=== PATIENT | female | born 2000 | race African-American/Black ===

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

== ENCOUNTER 2019-05-24 18:53 | Inpatient (IN) | payer MEDICARE, MEDICAID ==
[~2019-05-24] VITALS: Ht 167.6 cm; Wt 93.4 kg
[2019-05-24] MEDS ORDERED: IPRATROPIUM BROMIDE (0.02%) 0.5MG/2.5ML NEB HHN STA (22:07)
[2019-05-24] MEDS ORDERED: METHYLPREDNISOLONE SOD SUCC 125 MG/2 ML VIAL IV STA (22:07)
[2019-05-24] MEDS ORDERED: ALBUTEROL (0.083%) 2.5MG/3ML NEB HHN STA (22:07)
[2019-05-24] MEDS ORDERED: ACETAMINOPHEN 325MG TABLET PO ONE (22:15)
[2019-05-24] MEDS ORDERED: AZITHROMYCIN 500 MG in DEXT 5% WATER 250 ML IV ONE (22:15)
[2019-05-24] MEDS ORDERED: CEFTRIAXONE 1 G PREMIX 50 ML IV ONE (22:15)
[2019-05-24] MEDS ORDERED: SODIUM CHLORIDE 0.9% 1000ML BAG (SEPSIS BOLUS) IV ONE (22:15)
[2019-05-24 23:44] LABS: BASOPHILS % 0.5 % (0.0-2.0); EOSINOPHILS % 1.2 % (0.0-5.0); HEMATOCRIT. 40.1 % (36.0-48.0); HEMOGLOBIN. 13.2 g/dL (12.0-16.0); LYMPHOCYTES % 18.2 % (20.0-50.0); MEAN CORPUSCULAR HEMOGLOBIN 29.2 pg (28.0-32.0); MEAN CORPUSCULAR VOLUME 88.7 fL (81.0-99.0); MEAN PLATELET VOLUME 9.5 fl (7.4-10.4); NEUTROPHILS % 72.1 % (40.0-76.0); PLATELET 262 x1000/uL (130-400); RED BLOOD CELL COUNT 4.52 mill/uL (4.2-5.4); RED CELL DISTRIBUTION WIDTH 13.8 % (11.6-14.6)
[2019-05-24 23:49] LABS: CHLORIDE 107 mEq/L (98-107); HCG SCREEN NEGATIVE
[2019-05-25 00:51] LABS: CLARITY URINE CLEAR (CLEAR); COLOR URINE YELLOW (YELLOW); KETONES URINE NEGATIVE (NEGATIVE); LEUKOCYTE ESTERASE URINE NEGATIVE (NEGATIVE); NITRITE URINE NEGATIVE (NEGATIVE); OCCULT BLOOD URINE NEGATIVE (NEGATIVE); PROTEIN URINE TRACE (NEGATIVE); SPECIFIC GRAVITY URINE 1.015 (1.005-1.030)
[2019-05-25 09:19] VITALS: BP 123/77
[2019-05-25 09:45] VITALS: BP 123/77
[2019-05-25 11:58] VITALS: BP 133/79
[2019-05-25 16:01] VITALS: BP 141/78
[2019-05-25] MEDS ORDERED: ALBUTEROL (0.083%) 2.5MG/3ML NEB HHN PRN (16:30)
[2019-05-25] MEDS ORDERED: ALBU6.7H9 INH (16:36)
[2019-05-25 20:00] VITALS: BP 124/92
[2019-05-25] MEDS ORDERED: ONDANSETRON HCL 4MG/2ML INJ IV PRN (20:00)
[2019-05-25] MEDS ORDERED: ACETAMINOPHEN 650MG SUPP PR PRN (20:00)
[2019-05-25] MEDS ORDERED: GUAIFENESIN 200MG/10ML SUGAR FREE UDC PO PRN (20:00)
[2019-05-25] MEDS ORDERED: CLONIDINE 0.1MG TABLET PO PRN (20:00)
[2019-05-25] MEDS ORDERED: IPRATROPIUM/ALBUTEROL 0.5-3(2.5)MG/3ML NEB NEB PRN (20:00)
[2019-05-25] MEDS ORDERED: MAGNESIUM/ALUMINUM HYDROXIDE/SIMETHICONE 30ML UDC PO PRN (20:00)
[2019-05-25] MEDS ORDERED: ACETAMINOPHEN 650MG/20.3ML UDC GT PRN (20:00)
[2019-05-25] MEDS ORDERED: NA PHOS,M-B/NA PHOS,DI-BA ENEMA 118ML PR PRN (20:00)
[2019-05-25] MEDS ORDERED: DOCUSATE SODIUM 100MG CAPSULE PO PRN (20:00)
[2019-05-25] MEDS ORDERED: ACETAMINOPHEN 325MG TABLET PO PRN (20:00)
[2019-05-25] MEDS ORDERED: DIPHENHYDRAMINE 50MG/ML VIAL IV PRN (20:00)
[2019-05-25] MEDS ORDERED: LEVOFLOXACIN 500MG PREMIX 100 ML IV SCH (21:00)
[2019-05-25] MEDS: ENOXAPARIN 40MG/0.4ML SYR SUBCUT SCH (21:00)
[2019-05-25 21:45] LABS: HEMATOCRIT. 37.9 % (36.0-48.0); HEMOGLOBIN. 12.4 g/dL (12.0-16.0); MEAN CORPUSCULAR HEMOGLOBIN 28.8 pg (28.0-32.0); MEAN CORPUSCULAR VOLUME 88.3 fL (81.0-99.0); MEAN PLATELET VOLUME 9.1 fl (7.4-10.4); PLATELET 274 x1000/uL (130-400); RED BLOOD CELL COUNT 4.29 mill/uL (4.2-5.4)
[2019-05-25 21:58] LABS: CHLORIDE 113 mEq/L (98-107)
[2019-05-25] MEDS ORDERED: AZITHROMYCIN 500 MG in DEXT 5% WATER 250 ML IV SCH (22:00)
[2019-05-25 23:05] LABS: PLATELET ESTIMATE NORMAL
[2019-05-25] MEDS: SODIUM CHLORIDE 0.9% INJ 3ML FLUSH IVF SCH (23:35)
[2019-05-26] VITALS: BP 128/80
[2019-05-26] MEDS ORDERED: DIPHENHYDRAMINE 50MG CAPSULE PO NR
[2019-05-26] MEDS: IPRATROPIUM/ALBUTEROL 0.5-3(2.5)MG/3ML NEB HHN SCH ×2 (00:25→11:30)
[2019-05-26 04:00] VITALS: BP 158/95
[2019-05-26] MEDS: SODIUM CHLORIDE 0.9% INJ 3ML FLUSH IVF SCH (06:11)
[2019-05-26 07:00] LABS: BASOPHILS % 0.2 % (0.0-2.0); EOSINOPHILS % 0.8 % (0.0-5.0); HEMATOCRIT. 36.8 % (36.0-48.0); HEMOGLOBIN. 12.2 g/dL (12.0-16.0); LYMPHOCYTES % 18.6 % (20.0-50.0); MEAN CORPUSCULAR HEMOGLOBIN 29.1 pg (28.0-32.0); MEAN PLATELET VOLUME 9.5 fl (7.4-10.4); MONOCYTES % 7.2 % (2.0-8.0); NEUTROPHILS % 73.2 % (40.0-76.0); PLATELET 262 x1000/uL (130-400); RED BLOOD CELL COUNT 4.18 mill/uL (4.2-5.4); RED CELL DISTRIBUTION WIDTH 14.3 % (11.6-14.6)
[2019-05-26 07:10] LABS: CHLORIDE 112 mEq/L (98-107)
[2019-05-26 07:17] LABS: LDL CHOLESTEROL 87 mg/dL (5-100)
[2019-05-26 07:20] LABS: HDL CHOLESTEROL 67 mg/dL (40-59)
[2019-05-26 08:00] VITALS: BP 134/80
[2019-05-26] MEDS: ENOXAPARIN 40MG/0.4ML SYR SUBCUT SCH (09:17)
[2019-05-26] MEDS ORDERED: BUDESONIDE 0.5MG/2ML NEB HHN SCH (11:15)
[2019-05-26] MEDS ORDERED: PREDNISONE 20MG TABLET PO SCH (11:15)
[2019-05-26 12:00] VITALS: BP 159/89
[2019-05-26] MEDS ORDERED: P50 MT (13:31)
[2019-05-26] MEDS ORDERED: LEVO500T2 MT (13:31)
[2019-05-26] MEDS ORDERED: PULM50 HHN (13:31)
[2019-05-26 14:01] VITALS: BP 159/89
[2019-05-26] MEDS ORDERED: MONTELUKAST SODIUM 10MG TABLET PO SCH (17:00)
== END 2019-05-26 14:55 | disposition home or self-care (01) | DRG 871 ==
LOC: ER 18:53 → 6WST 05-25 01:27 → ENRESERV 05-25 07:14
PROVIDERS: ADMIT Family Medicine; ATTEND Family Medicine
DX: A41.9 Sepsis, unspecified organism (principal); J18.9 Pneumonia, unspecified organism; J96.00 Acute respiratory failure, unspecified whether with hypoxia or hypercapnia; F03.90 Unspecified dementia, unspecified severity, without behavioral disturbance, psychotic disturbance, mood disturbance, and anxiety; I10 Essential (primary) hypertension; R73.9 Hyperglycemia, unspecified; E66.9 Obesity, unspecified; Z82.5 Family history of asthma and other chronic lower respiratory diseases; Z68.33 Body mass index [BMI] 33.0-33.9, adult
CPT/HCPCS: 36415; 71045; 80053; 80061; 81003; 81025; 83605; 84145; 84703; 85025; 87804; 93005; 96361; 96365; 96366; 96368; 96375; 99285; J0456; J0696; J1650; J1956; J2930; J7030; J7060; J7611; J7620; Q0163

== ENCOUNTER 2021-01-09 18:52 | Emergency (ER) | payer MEDICARE, MEDICAID ==
[~2021-01-09] VITALS: Ht 170.2 cm; Wt 110.0 kg
[~2021-01-09 18:52] MED LIST: ALBU6.7H9 INH; LEVO500T2 MT; P50 MT; PULM50 HHN
[2021-01-09] MEDS ORDERED: ACETAMINOPHEN 325MG TABLET PO STA (19:23)
[2021-01-09] MEDS ORDERED: ONDANSETRON 4MG ODT PO STA (19:23)
[2021-01-09 21:26] LABS: BASOPHILS % 0.4 % (0.0-2.0); EOSINOPHILS % 3.7 % (0.0-5.0); HEMATOCRIT. 39.4 % (36.0-48.0); HEMOGLOBIN. 13.1 g/dL (12.0-16.0); LYMPHOCYTES % 20.1 % (20.0-50.0); MEAN CORPUSCULAR HEMOGLOBIN 28.9 pg (28.0-32.0); MEAN CORPUSCULAR VOLUME 86.8 fL (81.0-99.0); MEAN PLATELET VOLUME 9.5 fl (7.4-10.4); MONOCYTES % 6.7 % (2.0-8.0); NEUTROPHILS % 69.1 % (40.0-76.0); PLATELET 266 x1000/uL (130-400); RED BLOOD CELL COUNT 4.54 mill/uL (4.2-5.4); RED CELL DISTRIBUTION WIDTH 14.5 % (11.6-14.6)
[2021-01-09 21:27] LABS: CHLORIDE 109 mEq/L (98-107)
[2021-01-09 21:32] LABS: HCG SCREEN NEGATIVE
[2021-01-09] MEDS ORDERED: IOHEXOL-300 100 ML BOTTLE ONE (23:36)
[2021-01-10 07:03] VITALS: BP 126/79
== END 2021-01-10 07:05 | disposition home or self-care (01) ==
LOC: ER 18:52
DX: R10.11 Right upper quadrant pain (principal); K76.0 Fatty (change of) liver, not elsewhere classified; E66.01 Morbid (severe) obesity due to excess calories; Z68.38 Body mass index [BMI] 38.0-38.9, adult
CPT/HCPCS: 36415; 74177; 76705; 80053; 83605; 83690; 84703; 85025; 99285; Q0162; Q9967

== ENCOUNTER 2021-02-13 02:20 | Emergency (ER) | payer MEDICARE, MEDICAID ==
[~2021-02-13] VITALS: Ht 172.7 cm; Wt 195.0 kg
[2021-02-13 02:44] VITALS: BP 134/89
[2021-02-13] MEDS ORDERED: ACETAMINOPHEN 325MG TABLET PO ONE (04:45)
[2021-02-13] MEDS ORDERED: NAPR-681 PO (05:44)
== END 2021-02-13 05:53 | disposition home or self-care (01) ==
LOC: ER 02:20
DX: M79.672 Pain in left foot (principal); M79.671 Pain in right foot; J45.909 Unspecified asthma, uncomplicated; Z79.899 Other long term (current) drug therapy
CPT/HCPCS: 99282

== ENCOUNTER 2022-01-09 15:44 | Emergency (ER) | payer MEDICARE, OTHER ==
[~2022-01-09] VITALS: Ht 167.6 cm; Wt 91.0 kg
[~2022-01-09 15:44] MED LIST changes: +NAPR-681 PO
[2022-01-09 16:10] VITALS: BP 150/92
== END 2022-01-09 23:50 | disposition left against medical advice (07) ==
LOC: ER 15:44
DX: Z53.21 Procedure and treatment not carried out due to patient leaving prior to being seen by health care provider (principal)

== ENCOUNTER 2022-04-06 22:42 | Emergency (ER) | payer MEDICARE, OTHER ==
[~2022-04-06] VITALS: Ht 172.7 cm; Wt 91.0 kg
[~2022-04-06 22:42] MED LIST changes: +ALBU6.7H3 INH; -ALBU6.7H9 INH
[2022-04-07] MEDS ORDERED: PERM59LI8 TP (01:32)
[2022-04-07 01:58] VITALS: BP 112/77
== END 2022-04-07 02:01 | disposition home or self-care (01) ==
LOC: ER 22:42
DX: L29.9 Pruritus, unspecified (principal); J45.909 Unspecified asthma, uncomplicated; Z79.899 Other long term (current) drug therapy
CPT/HCPCS: 99281; 99282

== ENCOUNTER 2022-05-10 16:56 | Emergency (ER) | payer MEDICARE, OTHER ==
[~2022-05-10] VITALS: Ht 172.7 cm; Wt 175.7 kg
[~2022-05-10 16:56] MED LIST changes: +PERM59LI8 TP
[2022-05-10 17:24] VITALS: BP 158/94
[2022-05-10] MEDS ORDERED: PERM60CR18 TP (17:35)
== END 2022-05-10 17:47 | disposition home or self-care (01) ==
LOC: ER 16:56
DX: B85.0 Pediculosis due to Pediculus humanus capitis (principal); J45.909 Unspecified asthma, uncomplicated
CPT/HCPCS: 99282

== ENCOUNTER 2022-06-22 20:40 | Emergency (ER) | payer MEDICARE, OTHER ==
[~2022-06-22] VITALS: Ht 175.3 cm; Wt 138.0 kg
[~2022-06-22 20:40] MED LIST changes: +PERM60CR18 TP
[2022-06-22 20:59] VITALS: BP 158/99
[2022-06-22] MEDS ORDERED: PERM59LI8 TP (21:02)
== END 2022-06-22 21:43 | disposition home or self-care (01) ==
LOC: ER 20:57
DX: B85.0 Pediculosis due to Pediculus humanus capitis (principal); J45.909 Unspecified asthma, uncomplicated; Z59.00 Homelessness unspecified
CPT/HCPCS: 99282

== ENCOUNTER 2023-02-12 20:13 | Emergency (ER) | payer MEDICARE, OTHER ==
[~2023-02-12] VITALS: Ht 177.8 cm; Wt 181.3 kg
[2023-02-12 20:41] VITALS: BP 150/96; TEMP 98.7
[2023-02-12] MEDS ORDERED: PREDNISONE 20MG TABLET PO STA (20:44)
[2023-02-12] MEDS ORDERED: ALBUTEROL 6.7GM HFA INHALER ORI ONE (20:45)
[2023-02-12] MEDS ORDERED: ALBU18HF2 IH (20:51)
[2023-02-12] MEDS ORDERED: P20 PO (20:51)
[2023-02-12] MEDS ORDERED: IPRATROPIUM/ALBUTEROL 0.5-3(2.5)MG/3ML NEB HHN ONE (22:00)
[2023-02-12 22:14] VITALS: PULSE 78; RESP 18; O2SAT 98
== END 2023-02-12 23:04 | disposition home or self-care (01) ==
LOC: ER 20:13
DX: J45.901 Unspecified asthma with (acute) exacerbation (principal); Z79.899 Other long term (current) drug therapy
CPT/HCPCS: 94640; 99283

== ENCOUNTER 2023-03-19 18:37 | Emergency (ER) | payer MEDICARE, OTHER ==
[~2023-03-19] VITALS: Ht 167.6 cm; Wt 141.0 kg
[~2023-03-19 18:37] MED LIST changes: +ALBU18HF2 IH; +P20 PO
[2023-03-19 18:54] VITALS: O2SAT 98
[2023-03-19] MEDS ORDERED: ACETAMINOPHEN 325MG TABLET PO ONE (22:30)
[2023-03-19] MEDS ORDERED: KETOROLAC 30MG/ML VIAL IM ONE (22:30)
[2023-03-19] MEDS ORDERED: ASPI-1153 PO (22:35)
[2023-03-19 22:50] VITALS: BP 151/96
[2023-03-19 22:52] VITALS: PULSE 89; RESP 16; TEMP 98.2
== END 2023-03-19 22:54 | disposition home or self-care (01) ==
LOC: ER 18:37
DX: R51.9 Headache, unspecified (principal); J45.909 Unspecified asthma, uncomplicated; Z79.899 Other long term (current) drug therapy
CPT/HCPCS: 99283; 81025; 96372; J1885

== ENCOUNTER 2023-04-20 16:33 | Emergency (ER) | payer MEDICARE, OTHER ==
[~2023-04-20] VITALS: Ht 175.3 cm; Wt 172.3 kg
[~2023-04-20 16:33] MED LIST changes: +ASPI-1153 PO
[2023-04-20 16:55] VITALS: BP 144/91; TEMP 97.9
[2023-04-20] MEDS ORDERED: ALBUTEROL (0.5%) 2.5MG/0.5ML NEB HHN ONE (19:15)
[2023-04-20] MEDS ORDERED: ALBU18HF2 IH (20:08)
[2023-04-20] MEDS ORDERED: P50 MT (20:10)
[2023-04-20 20:42] VITALS: PULSE 94; RESP 18; O2SAT 96
== END 2023-04-20 21:29 | disposition home or self-care (01) ==
LOC: ER 16:33
DX: J45.901 Unspecified asthma with (acute) exacerbation (principal)
CPT/HCPCS: 71045; 94640; 99283